=== PATIENT | female | born 1980 | race African-American/Black ===

== ENCOUNTER 2017-09-02 00:02 | Inpatient (IN) ==
[2017-09-02] MEDS ORDERED: LACTATED RINGERS 500 ML IV PRN (00:39)
[2017-09-02] MEDS ORDERED: ONDANSETRON 4 MG/2 ML VIAL IV PRN ×2 (00:39→22:25)
[2017-09-02] MEDS ORDERED: BUTORPHANOL 2 MG/ML VIAL IV PRN (00:39)
[2017-09-02] MEDS ORDERED: OXYTOCIN/LR 20 UNIT/1,000 ML BAG IV SCH (01:00)
[2017-09-02] MEDS: LACTATED RINGERS 1,000 ML IV SCH ×3 (01:15→15:05)
[2017-09-02 01:45] LABS: Basophils % 0.2 % (0.0-0.8); Eosinophils # 0.1 10*3/uL (0.0-0.87); Eosinophils % 0.9 % (0.00-10.9); Hematocrit 33.5 VOL% (35.7-47.0); Hemoglobin 11.4 GM/DL (12.0-16.0); Immature Granulocytes % 1.2 %; Immature Granulocytes Absolute 0.12 #; Lymphocytes # 2.2 10*3/uL (1.4-4.0); Lymphocytes % 21.4 % (21.3-54.2); Mean Corpuscular Hemoglobin 27 PG (27-34); Mean Platelet Volume 11.2 FL (9.6-12.0); Monocytes # 0.8 10*3/uL (0.11-0.8); Monocytes % 7.5 % (1.7-12.7); Neutrophils % 68.8 % (38.7-73.9); Platelet Count 208 T/CUMM (130-400); Red Blood Count 4.19 MC/CUMM (3.8-5.5); Red Cell Distribution Width 16.4 % (9.3-17.3); White Blood Count 10.1 T/CUMM (4-12)
[2017-09-02] MEDS: AMPICILLIN INJ 2,000 MG in SODIUM CHLORIDE 0.9% 50 ML IV SCH ×3 (02:15→14:17)
[2017-09-02] MEDS ORDERED: diphenhydrAMINE 50 MG/1 ML VIAL IV PRN ×2 (08:12)
[2017-09-02] MEDS ORDERED: FAMOTIDINE 20 MG/2 ML VIAL IV ONE (08:12)
[2017-09-02] MEDS ORDERED: ePHEDrine 50 MG/ML AMP IV PRN (08:12)
[2017-09-02] MEDS ORDERED: ONDANSETRON 4 MG/2 ML VIAL IV ONE (08:12)
[2017-09-02] MEDS ORDERED: PROMETHAZINE 25 MG/1 ML VIAL IM ONE (08:12)
[2017-09-02] MEDS ORDERED: LACTATED RINGERS 1,000 ML IV ONE (08:12)
[2017-09-02] MEDS ORDERED: hydrOXYzine HCL 25 MG/1 ML VIAL IM PRN (08:12)
[2017-09-02] MEDS ORDERED: CITRIC ACID/SODIUM CITRATE 30 ML UDCUP PO ONE (08:12)
[2017-09-02] MEDS ORDERED: fentaNYL 2 MCG/ROPIV 0.2% EPID 150 ML EPIDURAL SCH (08:30)
[2017-09-02 08:40] LABS: PT Patient Result 10.8 SECS; Partial Thromboplastin Time 26.4 SECS (0-40)
[2017-09-02 11:28] LABS: Apearance,Urine CLEAR (Clear); Bilirubin,Urine Negative (Negative); Blood, Urine Negative (Negative); Glucose,Urine (UA) Negative (Negative); Ketones,Urine 20 mg/dL (Negative); Mucus,Urine Occasional /LPF (Occasional); Nitrite,Urine Negative (Negative); Protein,Urine Negative; RBC,Urine 4 /HPF (0-4); Squamous Epithelial Cell,Urine Occasional /HPF (0-10); Urine Color Yellow (Yellow); Urine Specific Gravity 1.019 (1.001-1.035); Urine Urobilinogen < 2.0 EU/DL (0.2-1.0); WBC,Urine 2 /HPF (0-6)
[2017-09-02] MEDS ORDERED: OXYTOCIN/LR 0 UNIT/0 ML BAG IV ONE (19:22)
[2017-09-02] MEDS ORDERED: miSOPROStol 200 MCG TABLET ONE (19:23)
[2017-09-02] MEDS ORDERED: METHYLERGONOVINE 0.2 MG/1 ML AMP ONE ×2 (19:23→22:10)
[2017-09-02] MEDS ORDERED: OXYTOCIN 10 UNIT/ML VIAL ONE (19:23)
[2017-09-02] MEDS ORDERED: CARBOPROST TROMETHAMINE 250 MCG/ML AMP IM ONE ×2 (19:24→22:10)
[2017-09-02] MEDS ORDERED: ROPIVACAINE 0.5% 30 ML VIAL ONE (21:19)
[2017-09-02] MEDS ORDERED: TRANEXAMIC ACID 1,000 MG/10 ML VIAL IV ONE (22:09)
[2017-09-02] MEDS ORDERED: MEASLES/MUMPS/RUBELLA VACCINE 0.5 ML VIAL SUBCUT ONE (22:25)
[2017-09-02] MEDS ORDERED: BENZOCAINE 20%/MENTHOL 0.5% SPRAY 56 GM CAN TOP PRN (22:25)
[2017-09-02] MEDS ORDERED: WITCH HAZEL PADS 100/JAR TOP PRN (22:25)
[2017-09-02] MEDS ORDERED: oxyCODONE/ACETAMINOPHEN 5-325 MG TABLET PO PRN (22:25)
[2017-09-02] MEDS ORDERED: OXYTOCIN/LR 20 UNIT/1,000 ML BAG IV ONE (22:25)
[2017-09-02] MEDS ORDERED: DIPH/TET/ACEL PERT BOOSTER VACCINE 0.5 ML VIAL IM ONE (22:25)
[2017-09-02] MEDS ORDERED: RHO(D) IMMUNE GLOBULIN 300 MCG SYRINGE IM ONE (22:25)
[2017-09-02] MEDS ORDERED: BISACODYL 10 MG SUPP RECTAL PRN (22:25)
[2017-09-02] MEDS ORDERED: ACETAMINOPHEN 325 MG TABLET PO PRN (22:25)
[2017-09-02] MEDS ORDERED: LANOLIN 50% CREAM 0.3 OZ TUBE TOP PRN (22:25)
[2017-09-02] MEDS ORDERED: HYDROCORTISONE 2.5% RECTAL CREAM 30 GM TUBE TOP PRN (22:25)
[2017-09-02] MEDS ORDERED: IBUPROFEN 800 MG TABLET PO PRN (22:25)
[2017-09-03] MEDS: AMPICILLIN INJ 2,000 MG in SODIUM CHLORIDE 0.9% 50 ML IV SCH (00:13)
[2017-09-03] MEDS: oxyCODONE/ACETAMINOPHEN 5-325 MG TABLET PO PRN (00:18)
[2017-09-03 07:14] LABS: Basophils % 0.2 % (0.0-0.8); Eosinophils # 0.1 10*3/uL (0.0-0.87); Eosinophils % 0.5 % (0.00-10.9); Hematocrit 35.6 VOL% (35.7-47.0); Immature Granulocytes % 0.6 %; Lymphocytes % 12.4 % (21.3-54.2); Mean Corpuscular HGB Conc 33.7 GM/DL (32-36); Mean Corpuscular Hemoglobin 27 PG (27-34); Mean Corpuscular Volume 79.8 FL (87-102); Mean Platelet Volume 12.1 FL (9.6-12.0); Monocytes # 1.1 10*3/uL (0.11-0.8); Monocytes % 6.9 % (1.7-12.7); Neutrophils % 79.4 % (38.7-73.9); Platelet Count 213 T/CUMM (130-400); Red Blood Count 4.46 MC/CUMM (3.8-5.5); Red Cell Distribution Width 16.3 % (9.3-17.3); White Blood Count 16.4 T/CUMM (4-12)
[2017-09-03] MEDS: DOCUSATE SODIUM 100 MG CAPSULE PO SCH (21:27)
[2017-09-04] MEDS: oxyCODONE/ACETAMINOPHEN 5-325 MG TABLET PO PRN (04:11)
[2017-09-04 07:37] VITALS: BP 137/89
[2017-09-04] MEDS: DOCUSATE SODIUM 100 MG CAPSULE PO SCH (09:52)
== END 2017-09-04 12:00 | disposition home or self-care (01) | DRG 560 ==
LOC: N.LDOUT 00:02 → N.LD 00:10 → N.OB 09-03 00:30
PROVIDERS: ADMIT Obstetrics & Gynecology; ATTEND Obstetrics & Gynecology